=== PATIENT | male | born 1980 | race Hispanic/Latino ===

== ENCOUNTER 2018-03-08 10:44 | Inpatient (IN) | payer BC, OTHER ==
[~2018-03-08] VITALS: Ht 167.6 cm; Wt 71.2 kg
[2018-03-08] VITALS (22 sets, daily range): BP systolic 121–153; BP diastolic 72–94
[2018-03-08] MEDS ORDERED: SODIUM CHLORIDE 0.9% 1000ML 1,000 ML IV ONE ×2 (11:35→13:09)
[2018-03-08 11:49] LABS: BASOPHILS % (AUTO) 0.3 % (0.0-5.0); HEMATOCRIT 52.5 % (42-54); LYMPHOCYTES % (AUTO) 3.3 % (21.0-51.0); MEAN CORPUSCULAR HEMOGLOBIN 30.9 pg (27.0-33.0); MEAN CORPUSCULAR HGB CONC 34.5 g/dL (32.0-36.0); MEAN CORPUSCULAR VOLUME 89.5 fL (79-99); MONOCYTES % (AUTO) 7.2 % (3.0-13.0); NEUTROPHILS % (AUTO) 89.2 % (40.0-77.0); NUCLEATED RED BLOOD CELLS 0.1 % (0.0-0.19); PLATELET COUNT (AUTO) 179 K/uL (130-400); RED BLOOD CELL COUNT(AUTO) 5.87 MIL/uL (4.50-6.20); RED CELL DISTRIBUTION WIDTH 12.2 % (11.0-15.5); WHITE BLOOD COUNT (AUTO) 19.6 K/uL (4.8-10.8)
[2018-03-08 11:55] LABS: CREATININE 2.1 mg/dL (0.5-1.5)
[2018-03-08 12:00] LABS: ALBUMIN 4.1 g/dL (3.5-5.0); BILIRUBIN,TOTAL 1.7 mg/dL (0.2-1.0); TOTAL PROTEIN, SERUM 9.2 g/dL (6.0-8.3)
[2018-03-08] MEDS ORDERED: ZOSYN 3.375GM+NS 50ML 50 ML IV ONE (13:09)
[2018-03-08] MEDS ORDERED: SODIUM CHLORIDE 0.9% 50 ML IV ONE (13:09)
[2018-03-08] MEDS ORDERED: SODIUM CHLORIDE 0.9% 1000ML 1,000 ML IV SCH (14:13)
[2018-03-08] MEDS ORDERED: ONDANSETRON HCL MDV 20ML 2 MG/ML VIAL IVP PRN (14:15)
[2018-03-08] MEDS ORDERED: MORPHINE SULFATE 2 MG/ML 1ML SYG IV PRN (14:15)
[2018-03-08] MEDS ORDERED: METOCLOPRAMIDE 10 MG/2 ML VIAL ONE ×2 (15:33→15:35)
[2018-03-08] MEDS ORDERED: LIDOCAINE PF 2% 5ML ABBOJECT ONE (15:37)
[2018-03-08] MEDS ORDERED: PROPOFOL 10 MG/ML 20ML VIAL IV ONE (15:37)
[2018-03-08] MEDS ORDERED: MIDAZOLAM HCL 1 MG/ML 2ML VIAL ONE (15:37)
[2018-03-08] MEDS ORDERED: SUCCINYLCHOLINE 200MG/10ML SYR ONE (15:37)
[2018-03-08] MEDS ORDERED: ROCURONIUM 10MG/1ML SYR 10 MG/ML ML ONE (15:38)
[2018-03-08] MEDS ORDERED: FENTANYL CITRATE PF 50 MCG/1 ML 2ML VIAL ONE ×3 (15:40→16:44)
[2018-03-08] MEDS ORDERED: CITRIC ACID/SODIUM CITRATE 30 ML UDCUP ONE (15:46)
[2018-03-08] MEDS ORDERED: BUPIVACAINE/PF 0.5% 10ML VIAL ONE (16:15)
[2018-03-08] MEDS ORDERED: GLYCOPYRROLATE 1 MG/5 ML SYRINGE ONE (16:47)
[2018-03-08] MEDS ORDERED: NEOSTIGMINE 5MG/5ML SYR IV ONE (16:47)
[2018-03-08] MEDS ORDERED: MEPERIDINE-PF 25 MG/ML SYG ONE (17:19)
[2018-03-08] MEDS ORDERED: MORPHINE SULFATE 4 MG/1ML SYG ONE (18:53)
[2018-03-08] MEDS: METRONIDAZOLE 500MG/100ML BAG 100 ML IV SCH ×2 (19:02→19:52)
[2018-03-08] MEDS: LACTATED RINGERS 1000ML 1,000 ML IV SCH (20:38)
[2018-03-08] MEDS: ZOSYN 3.375GM+NS 50ML 50 ML IV SCH (20:38)
[2018-03-08] MEDS: MORPHINE SULFATE 4 MG/1ML SYG IVP PRN (23:47)
[2018-03-09] MEDS: MORPHINE SULFATE 4 MG/1ML SYG IVP PRN ×2 (03:55→22:21)
[2018-03-09 04:12] VITALS: BP 132/78
[2018-03-09] MEDS: ZOSYN 3.375GM+NS 50ML 50 ML IV SCH ×3 (05:09→20:27)
[2018-03-09] MEDS: LACTATED RINGERS 1000ML 1,000 ML IV SCH ×2 (05:39→14:29)
[2018-03-09] MEDS: METRONIDAZOLE 500MG/100ML BAG 100 ML IV SCH ×3 (05:40→22:29)
[2018-03-09 05:45] LABS: MEAN CORPUSCULAR HEMOGLOBIN 30.6 pg (27.0-33.0); MEAN CORPUSCULAR HGB CONC 34.3 g/dL (32.0-36.0); MEAN CORPUSCULAR VOLUME 89.4 fL (79-99); PLATELET COUNT (AUTO) 133 K/uL (130-400); RED BLOOD CELL COUNT(AUTO) 4.69 MIL/uL (4.50-6.20); RED CELL DISTRIBUTION WIDTH 12.3 % (11.0-15.5); WHITE BLOOD COUNT (AUTO) 6.8 K/uL (4.8-10.8)
[2018-03-09 06:02] LABS: ALBUMIN 2.4 g/dL (3.5-5.0); BILIRUBIN,TOTAL 1.2 mg/dL (0.2-1.0); POTASSIUM 3.8 mmol/L (3.5-5.1)
[2018-03-09 09:05] VITALS: BP 124/77
[2018-03-09] MEDS: FAMOTIDINE/PF 20 MG/2 ML VIAL IV SCH (11:38)
[2018-03-09 14:16] VITALS: BP 134/83
[2018-03-09 16:52] VITALS: BP 124/75
[2018-03-09 19:35] VITALS: BP 118/77
[2018-03-09 23:27] VITALS: BP 119/68
[2018-03-10 03:25] VITALS: BP 115/69
[2018-03-10] MEDS: LACTATED RINGERS 1000ML 1,000 ML IV SCH ×2 (04:06→10:30)
[2018-03-10] MEDS: ZOSYN 3.375GM+NS 50ML 50 ML IV SCH (05:02)
[2018-03-10] MEDS: METRONIDAZOLE 500MG/100ML BAG 100 ML IV SCH ×2 (05:48→14:34)
[2018-03-10 06:27] LABS: BASOPHILS % (AUTO) 0.2 % (0.0-5.0); EOSINOPHILS % (AUTO) 0.9 % (0.0-8.0); HEMATOCRIT 40.3 % (42-54); LYMPHOCYTES % (AUTO) 16.4 % (21.0-51.0); MEAN CORPUSCULAR HGB CONC 34.5 g/dL (32.0-36.0); MEAN CORPUSCULAR VOLUME 89.8 fL (79-99); MONOCYTES % (AUTO) 21.2 % (3.0-13.0); NEUTROPHILS % (AUTO) 61.3 % (40.0-77.0); PLATELET COUNT (AUTO) 174 K/uL (130-400); RED BLOOD CELL COUNT(AUTO) 4.49 MIL/uL (4.50-6.20); RED CELL DISTRIBUTION WIDTH 12.4 % (11.0-15.5); WHITE BLOOD COUNT (AUTO) 6.6 K/uL (4.8-10.8)
[2018-03-10 06:37] LABS: ALBUMIN 2.4 g/dL (3.5-5.0); BILIRUBIN,TOTAL 1.1 mg/dL (0.2-1.0); POTASSIUM 3.5 mmol/L (3.5-5.1); TOTAL PROTEIN, SERUM 6.1 g/dL (6.0-8.3)
[2018-03-10 07:00] VITALS: BP 111/73
[2018-03-10] MEDS ORDERED: POTASSIUM CHLORIDE 20MEQ/100ML 100 ML IV PRN (07:30)
[2018-03-10] MEDS ORDERED: LIDOCAINE HCL-MPF 1% 2ML VIAL IVP PRN ×2 (07:30)
[2018-03-10] MEDS ORDERED: POTASSIUM CHLORIDE 10MEQ/100ML 100 ML IV PRN (07:30)
[2018-03-10] MEDS ORDERED: POTASSIUM CHLORIDE 10% ELIXIR 20 MEQ/15 ML UDCUP PO PRN ×2 (07:30)
[2018-03-10] MEDS: FAMOTIDINE/PF 20 MG/2 ML VIAL IV SCH (08:07)
[2018-03-10] MEDS: LEVOFLOXACIN 500 MG/D5W 100 ML 100 ML IV SCH (08:08)
[2018-03-10] MEDS: POTASSIUM CHLORIDE 20 MEQ ERTAB PO PRN ×2 (08:08→12:13)
[2018-03-10 11:00] VITALS: BP 129/78
[2018-03-10] MEDS ORDERED: KETOROLAC TROMETHAMINE 15MG/ML IV PRN (12:00)
[2018-03-10] MEDS: ACETAMINOPHEN-CODEINE 300/30MG TAB PO PRN (12:15)
[2018-03-10] MEDS ORDERED: DIATR MEGLU/DIATRIZOATE SODIUM 30 ML BOTTLE ONE (13:33)
[2018-03-10 16:00] VITALS: BP 125/76
[2018-03-10 20:00] VITALS: BP 120/74
[2018-03-11] VITALS: BP 119/67
[2018-03-11] MEDS: ACETAMINOPHEN-CODEINE 300/30MG TAB PO PRN ×5 (00:02→22:29)
[2018-03-11] MEDS: LACTATED RINGERS 1000ML 1,000 ML IV SCH ×2 (00:03→00:06)
[2018-03-11 04:00] VITALS: BP 118/72
[2018-03-11] MEDS: METRONIDAZOLE 500MG/100ML BAG 100 ML IV SCH ×4 (06:19→21:12)
[2018-03-11 07:00] VITALS: BP 149/83
[2018-03-11 08:14] LABS: BASOPHILS % (AUTO) 0.5 % (0.0-5.0); EOSINOPHILS % (AUTO) 2.4 % (0.0-8.0); HEMATOCRIT 38.4 % (42-54); LYMPHOCYTES % (AUTO) 16.5 % (21.0-51.0); MEAN CORPUSCULAR HGB CONC 33.6 g/dL (32.0-36.0); MEAN CORPUSCULAR VOLUME 89.4 fL (79-99); MONOCYTES % (AUTO) 15.9 % (3.0-13.0); NEUTROPHILS % (AUTO) 64.7 % (40.0-77.0); NUCLEATED RED BLOOD CELLS 0.1 % (0.0-0.19); PLATELET COUNT (AUTO) 186 K/uL (130-400); RED BLOOD CELL COUNT(AUTO) 4.29 MIL/uL (4.50-6.20); RED CELL DISTRIBUTION WIDTH 12.3 % (11.0-15.5); WHITE BLOOD COUNT (AUTO) 8.1 K/uL (4.8-10.8)
[2018-03-11 08:21] LABS: CREATININE 0.9 mg/dL (0.5-1.5); POTASSIUM 3.3 mmol/L (3.5-5.1)
[2018-03-11] MEDS: LEVOFLOXACIN 500 MG/D5W 100 ML 100 ML IV SCH (08:30)
[2018-03-11] MEDS: FAMOTIDINE/PF 20 MG/2 ML VIAL IV SCH (08:30)
[2018-03-11 11:00] VITALS: BP 119/64
[2018-03-11 16:00] VITALS: BP 121/68
[2018-03-11] MEDS: POTASSIUM CHLORIDE 20 MEQ ERTAB PO PRN (16:57)
[2018-03-11 20:00] VITALS: BP 122/68
[2018-03-12] VITALS: BP 115/64
[2018-03-12] MEDS: ACETAMINOPHEN-CODEINE 300/30MG TAB PO PRN ×4 (03:35→23:49)
[2018-03-12 04:00] VITALS: BP_SYST 100; BP_SYST 121; BP_DIAS 62; BP_DIAS 75
[2018-03-12 05:47] LABS: HEMATOCRIT 36.6 % (42-54); MEAN CORPUSCULAR HEMOGLOBIN 31.1 pg (27.0-33.0); MEAN CORPUSCULAR HGB CONC 34.9 g/dL (32.0-36.0); MEAN CORPUSCULAR VOLUME 89.1 fL (79-99); PLATELET COUNT (AUTO) 223 K/uL (130-400); RED BLOOD CELL COUNT(AUTO) 4.11 MIL/uL (4.50-6.20); WHITE BLOOD COUNT (AUTO) 10.3 K/uL (4.8-10.8)
[2018-03-12 05:54] LABS: BAND NEUTROPHILS % (MANUAL) 30 % (0-2); EOSINOPHILS % (MANUAL) 1 % (1-6); LYMPHOCYTES % (MANUAL) 6 % (22-44); MAN.DIFF COMMENT-IMPRESSION MANUAL DIFFERENTIAL; METAMYELOCYTES % 3 % (0-0); MONOCYTES % (MANUAL) 15 % (2-9); REACTIVE LYMPHOCYTES 1 % (0-0); SEGMENTED NEUTROPHILS % 44 % (40-70)
[2018-03-12] MEDS: POTASSIUM CHLORIDE 20 MEQ ERTAB PO PRN ×4 (06:44→17:39)
[2018-03-12] MEDS: METRONIDAZOLE 500MG/100ML BAG 100 ML IV SCH ×3 (06:45→22:00)
[2018-03-12 07:00] VITALS: BP_SYST 120; BP_SYST 149; BP_DIAS 71; BP_DIAS 97
[2018-03-12 07:28] LABS: CREATININE 0.9 mg/dL (0.5-1.5)
[2018-03-12] MEDS ORDERED: METR500T PO (08:52)
[2018-03-12] MEDS ORDERED: LEVO500T2 PO (08:52)
[2018-03-12] MEDS ORDERED: FISH OIL PO (09:32)
[2018-03-12] MEDS ORDERED: DICY20 PO (09:32)
[2018-03-12] MEDS ORDERED: METR-224 PO (09:32)
[2018-03-12] MEDS ORDERED: MULT1CAP32 PO (09:32)
[2018-03-12] MEDS ORDERED: L.AC1CAP6 PO (09:32)
[2018-03-12] MEDS: FAMOTIDINE/PF 20 MG/2 ML VIAL IV SCH (10:08)
[2018-03-12] MEDS: LEVOFLOXACIN 500 MG/D5W 100 ML 100 ML IV SCH (10:09)
[2018-03-12 11:00] VITALS: BP 125/77
[2018-03-12 16:00] VITALS: BP 116/74
[2018-03-12 19:15] VITALS: BP 122/76
[2018-03-13 00:20] VITALS: BP 112/63
[2018-03-13 04:15] VITALS: BP 120/78
[2018-03-13] MEDS: METRONIDAZOLE 500MG/100ML BAG 100 ML IV SCH ×2 (06:14→14:15)
[2018-03-13] MEDS: POTASSIUM CHLORIDE 20 MEQ ERTAB PO PRN (06:25)
[2018-03-13] MEDS: FAMOTIDINE/PF 20 MG/2 ML VIAL IV SCH (08:28)
[2018-03-13] MEDS: LEVOFLOXACIN 500 MG/D5W 100 ML 100 ML IV SCH (08:28)
[2018-03-13] MEDS: ACETAMINOPHEN-CODEINE 300/30MG TAB PO PRN ×2 (08:29→16:55)
[2018-03-13 09:41] VITALS: BP 131/79
[2018-03-13 12:00] VITALS: BP 110/66
== END 2018-03-13 18:20 | disposition home or self-care (01) | DRG 339 ==
LOC: EDH 10:44 → EDHIP 14:13 → 3AH 18:11
PROVIDERS: ADMIT Hospitalist; ATTEND Hospitalist
PROC: 0DTJ4ZZ Resection of Appendix, Percutaneous Endoscopic Approach (ICD-10-PCS; principal; 2018-03-08 16:20)
DX: K35.32 Acute appendicitis with perforation, localized peritonitis, and gangrene, without abscess (principal); K56.7 Ileus, unspecified; N17.9 Acute kidney failure, unspecified; L03.818 Cellulitis of other sites; K52.9 Noninfective gastroenteritis and colitis, unspecified; E86.0 Dehydration; E87.6 Hypokalemia; G89.18 Other acute postprocedural pain
CPT/HCPCS: 36415; 74176; 74177; 80048; 80053; 83690; 84132; 85025; 85027; 87070; 87076; 87324; 88304; A6266; G0378; J0330; J1956; J2001; J2175; J2250; J2270; J2543; J2704; J2710; J2765; J3010; J3490; J7030; J7120; Q9963